=== PATIENT | male | born 1970 | race Caucasian/White ===

== ENCOUNTER → 2019-02-05 | Outpatient (CLI) | payer BC ==
--- NOTE | 2019-02-05 12:52 | US ---
EXAMINATION TYPE: US scrotum with doppler. Grayscale and color Doppler Duplex imaging performed of t he scrotum. DATE OF EXAM: 02/05/2019 COMPARISON: NONE CLINICAL HISTORY: N50.819 Testicular Pain, Unspecified. EXAM MEASUREMENTS: TESTICLES: Right Testicle: 4.1 x 2.5 x 3.4 cm Left Testicle: 3.5 x 1.9 x 3.3 cm EPIDIDYMIS HEAD: Right Epididymis: 0.9 x 1.1 cm Left Epididymis: 0.9 x 0.6 cm Doppler performed to assess for testicular vascularity; good bilateral color flow and waveforms are s een. Presence of hydroceles: small amount of fluid surrounding bilateral testicles. Presence of varicoceles: none appreciated Comparison view show symmetric blood flow to both testicles towards end of study. IMPRESSION: Symmetric blood flow to both testicles. No suspicious increased or decreased flow noted.
== END | disposition home or self-care (01) ==
LOC: RADUSWWP 11:39
PROVIDERS: ATTEND Physician Assistant
DX: N50.811 Right testicular pain (principal); N50.812 Left testicular pain
CPT/HCPCS: 76870